=== PATIENT | male | born 1965 | race African-American/Black ===

== ENCOUNTER 2017-06-16 14:37 | Emergency (ER) | payer SELFPAY ==
[~2017-06-16] VITALS: Ht 180.3 cm; Wt 83.6 kg
[2017-06-16 15:22] LABS: HEMATOCRIT 43.7 % (38.0-50.0); MCH 32.1 PG (29.0-34.0); MCV 97.3 FL (86-99); MEAN PLAT.VOLUME 9.8 uM^3 (9.0-12.4); PLATELET COUNT 234 K/uL (156-360); RBC DIS.WIDTH-SD 46.5 % (39-53); RED BLOOD COUNT 4.49 M/uL (4.00-5.50)
[2017-06-16 15:29] LABS: CHLORIDE 103 mEq/L (99-109); POTASSIUM 4.5 mEq/L (3.7-5.4); SODIUM 139 mEq/L (136-147)
[2017-06-16 15:32] LABS: GLUCOSE 85 mg/dL (70-99)
[2017-06-16 15:33] LABS: ANION GAP 10 MEQ/L (2-14)
[2017-06-16 15:34] LABS: TOTAL BILIRUBIN 0.4 mg/dL (0.0-1.0)
[2017-06-16 15:35] LABS: ALKALINE PHOSPHATASE 61 IU/L (3-129); GFR ESTIMATE (CALCULATED) > 59 mL/min/
[2017-06-16 15:36] LABS: UREA NITROGEN (BUN) 12 mg/dL (9-23)
[2017-06-16 15:57] LABS: ADD MIUA? NO; BILIRUBIN NEGATIVE; BLOOD NEGATIVE; COLOR YELLOW ((YELLOW)); GLUCOSE (STRIP) NEGATIVE; KETONES NEGATIVE; LEUKOCYTES NEGATIVE; NITRITE NEGATIVE; PROTEIN (STRIP) NEGATIVE; SPECIFIC GRAVITY 1.011 (1.000-1.030); UCUL ADDED? NO; UROBILINOGEN 0.2 MG/DL (0.2-1.0)
[2017-06-16 16:05] LABS: COCAINE PRESUMPTIVE POSITIVE (150 ng/mL); METHAMPHETAMINE NEGATIVE (500 ng/mL); OPIATES (MORPHINE) NEGATIVE (100 ng/mL); PHENCYCLIDINE NEGATIVE (25 ng/mL); THC CANNABINOIDS NEGATIVE (50 ng/mL)
[2017-06-16 16:06] LABS: ADD MEDTOX COMMENT Y; AMPHETAMINE NEGATIVE (500 ng/mL); BARBITURATES NEGATIVE (200 ng/mL); BENZODIAZEPINES NEGATIVE (150 ng/mL); INTERNAL CONTROLS VALID? YES; METHADONE NEGATIVE (200 ng/mL); OXYCODONE NEGATIVE (100 ng/mL); PROPOXYPHENE NEGATIVE (300 ng/mL); TRICYCLIC ANTIDEPRESSANTS NEGATIVE (300 ng/mL)
[2017-06-16] MEDS ORDERED: ANTIVERT25 MG PO (16:27)
[2017-06-16 17:05] VITALS: BP 131/90
== END 2017-06-16 17:40 | disposition home or self-care (01) ==
LOC: EME 14:37
PROVIDERS: Nurse Practitioner Family
DX: F14.10 Cocaine abuse, uncomplicated (principal); R42 Dizziness and giddiness; F17.200 Nicotine dependence, unspecified, uncomplicated
CPT/HCPCS: 70450; 80053; 81003; 84999; 85027; 93005; 99281; 99284

== ENCOUNTER 2017-08-01 12:15 | Emergency (ER) | payer OTHER ==
[~2017-08-01] VITALS: Ht 180.3 cm; Wt 88.6 kg
[~2017-08-01 12:15] MED LIST: ANTIVERT25 MG PO
[2017-08-01 15:12] LABS: HEMATOCRIT 42.1 % (38.0-50.0); MCH 32.6 PG (29.0-34.0); MCHC 33.5 G/DL (30.0-36.0); MCV 97.2 FL (86-99); MEAN PLAT.VOLUME 9.5 uM^3 (9.0-12.4); PLATELET COUNT 210 K/uL (156-360); RBC DIS.WIDTH-CV 13.2 % (11.8-14.6); RED BLOOD COUNT 4.33 M/uL (4.00-5.50); WHITE BLOOD COUNT 4.5 K/uL (4.1-10.2)
[2017-08-01 15:21] LABS: CHLORIDE 106 mEq/L (99-109); POTASSIUM 4.1 mEq/L (3.7-5.4); SODIUM 139 mEq/L (136-147)
[2017-08-01 15:23] LABS: GLUCOSE 90 mg/dL (70-99)
[2017-08-01 15:24] LABS: ANION GAP 6 MEQ/L (2-14)
[2017-08-01 15:25] LABS: TOTAL BILIRUBIN 0.6 mg/dL (0.0-1.0)
[2017-08-01 15:27] LABS: ALKALINE PHOSPHATASE 75 IU/L (3-129); GFR ESTIMATE (CALCULATED) > 59 mL/min/
[2017-08-01 15:28] LABS: UREA NITROGEN (BUN) 10 mg/dL (9-23)
[2017-08-01] MEDS ORDERED: TYLENOL WITH C1 EACH PO (16:22)
[2017-08-01 17:02] VITALS: BP 126/83
== END 2017-08-01 17:05 | disposition home or self-care (01) ==
LOC: EME 12:15
PROVIDERS: Nurse Practitioner Family
PROC: 3E0234Z Introduction of Serum, Toxoid and Vaccine into Muscle, Percutaneous Approach (ICD-10-PCS; principal; 2017-08-01)
DX: K64.8 Other hemorrhoids (principal); K40.90 Unilateral inguinal hernia, without obstruction or gangrene, not specified as recurrent; K59.00 Constipation, unspecified; M79.671 Pain in right foot; W22.8XXA Striking against or struck by other objects, initial encounter; Z23 Encounter for immunization; F17.200 Nicotine dependence, unspecified, uncomplicated
CPT/HCPCS: 74177; 80053; 85027; 99281; 99285; J7030